=== PATIENT | male | born 1970 ===

== ENCOUNTER 2022-03-08 11:13 | Emergency (ER) | payer MEDICAID ==
[2022-03-08] MEDS ORDERED: Ketorolac 30 MG/ML SDV IM STA (15:39)
== END 2022-03-08 17:22 | disposition home or self-care (01) ==
LOC: MW.ED 11:13
DX: S92.061A Displaced intraarticular fracture of right calcaneus, initial encounter for closed fracture (principal); W17.89XA Other fall from one level to another, initial encounter
CPT/HCPCS: 72100; 72170; 73610; 73630; 73700; 96372; 99284; J1885; 29515